=== PATIENT | male | born 1955 | race African-American/Black ===

== ENCOUNTER 2021-02-20 12:52 | Outpatient (CLI) | payer MEDICARE ==
[~2021-02-20 12:52] MED LIST: LIDOCAINE 1%, 20ML ONE; LIDOCAINE-MPF 1%, 5ML ONE
[2021-02-20] MEDS ORDERED: GADOTERATE 5 MMOL/10 ML VIAL ONE (13:00)
[2021-02-20] MEDS ORDERED: OMNIPAQUE 300 MG/ML, 10ML VIAL ONE (13:00)
== END 2021-02-20 23:59 | disposition home or self-care (01) ==
LOC: RAD 12:52
PROVIDERS: ATTEND Family Medicine
DX: M25.512 Pain in left shoulder (principal); S46.012A Strain of muscle(s) and tendon(s) of the rotator cuff of left shoulder, initial encounter; S43.432A Superior glenoid labrum lesion of left shoulder, initial encounter; M19.012 Primary osteoarthritis, left shoulder; X58.XXXA Exposure to other specified factors, initial encounter; Y93.89 Activity, other specified; Y92.89 Other specified places as the place of occurrence of the external cause; Y99.8 Other external cause status
CPT/HCPCS: 23350; 73040; 73222; A9575; Q9967

== ENCOUNTER → 2021-03-07 | Outpatient (CLI) | payer MEDICARE ==
[~2021-03-07] MED LIST changes: -LIDOCAINE 1%, 20ML ONE; -LIDOCAINE-MPF 1%, 5ML ONE; +REGADENOSON 0.4 MG/5 ML SYRINGE ONE
== END | disposition home or self-care (01) ==
LOC: CVU 10:29
PROVIDERS: ATTEND Internal Medicine Cardiovascular Disease
DX: I08.8 Other rheumatic multiple valve diseases (principal); I10 Essential (primary) hypertension; I42.9 Cardiomyopathy, unspecified
CPT/HCPCS: 78452; 93017; 93306; 93356; A9502; J2785